=== PATIENT | male | born 1990 | race Caucasian/White ===

== ENCOUNTER 2019-11-09 19:28 | Emergency (ER) | payer OTHER, SELFPAY ==
[2019-11-09 19:43] VITALS: BP 135/67; PULSE 91; RESP 14; TEMP 37.4; O2SAT 99
--- NOTE | 2019-11-09 20:02 | PC.NURSE ---
Pt asking for something to calm him down claiming that no one has came and talked to him and he's starting to get upset. Provider aware
--- NOTE | 2019-11-09 20:08 | PC.NURSE ---
Pt walked out of department after stating that he didnt have time to be here and that he would just call 911 if he had an actual emergency. I asked the pt if he wanted to stay and talk to a nurse and he responded that it's going to take longer and i'd rather not stay. He proceeded to follow me back into the department and [employer] history teacher Ozzy talked to him
== END 2019-11-09 20:10 | disposition left against medical advice (07) ==
PROVIDERS: Emergency Provider Emergency Medicine; PCP Student in an Organized Health Care Education/Training Program
DX: R55 Syncope and collapse (principal); E16.2 Hypoglycemia, unspecified
CPT/HCPCS: 93005; 99281

== ENCOUNTER 2019-11-22 17:41 | Emergency (ER) | payer OTHER, MEDICAID, SELFPAY ==
[2019-11-22 17:49] VITALS: BP 145/87; PULSE 84; RESP 18; TEMP 36.9; O2SAT 97
--- NOTE | 2019-11-22 17:55 | PC.NURSE ---
Patient reports doing anywhere from 150-400 whip its a day. States he couldn't stop doing them today and had heart palpitations so called 911. I would like to speed up the process I have my dog alone at the [facility]
--- NOTE | 2019-11-22 17:58 | PC.NURSE ---
Pt reports doing approx 200 whip its today.
[2019-11-22 18:06] LABS: Add Manual Diff / Slide Review NO; Basophils Absolute Auto 0 /uL (0-100); Basophils Percent Auto 0.6 % (0-2); Eosinophils Absolute Auto 200 /uL (0-450); Eosinophils Percent Auto 2.4 % (2-4); Hematocrit 37.4 % (41-53); Hemoglobin 13.2 g/dL (13.5-17.5); Lymphocytes Absolute Auto 2600 /uL (1100-4500); Lymphocytes Percent Auto 34.4 % (25-40); Mean Corpuscular HGB Conc 35.3 % (30-36); Mean Corpuscular Hemoglobin 32.7 PG (26-34); Mean Corpuscular Volume 92.7 fL (80-100); Monocytes Absolute Auto 600 /uL (0-900); Monocytes Percent Auto 7.5 % (3-14); Neutrophils Absolute Auto 4200 /uL (1500-7000); Neutrophils Percent Auto 55.1 % (50-75); Platelet Count 222 X10^3/uL (150-400); Red Blood Cell Count 4.03 X10^6/uL (4.5-5.9); Red Cell Distribution Width 14.7 % (11.6-14.8); White Blood Cell Count 7.6 X10^3/uL (4.5-11.0)
--- NOTE | 2019-11-22 18:15 | ED_ITS ---
HPI - Overdose General Chief Complaint: Toxicology Problem Stated Complaint: Needs Rehab Time Seen by Provider: 11/22/19 17:47 Source: EMS Mode of arrival: EMS Related Data Allergies Allergy/AdvReac Type Severity Reaction Status Date / Time No Known Drug Allergies Allergy Verified 11/22/19 17:52 Patient History Social History Smoking Status: Current every day smoker Smoking Status: Current every day smoker alcohol intake frequency: other Substance Use Type: marijuana and other Exam Initial Vital Signs Initial Vital Signs: Vital Signs Temperature 98.4 F 11/22/19 17:49 Pulse Rate 84 11/22/19 17:49 Respiratory Rate 18 11/22/19 17:49 Blood Pressure 145/87 H 11/22/19 17:49 Pulse Oximetry 97 11/22/19 17:49 Course Orders Ordered: ED Orders 11/22/19 17:47 Consult to [facility] [place] - Patient Experience Coordinator Stat Urine Drug Screen, Rapid Stat 11/22/19 17:49 EKG-12 Lead Stat 11/22/19 17:58 Acetaminophen Stat Complete Blood Count AUTO DIFF Stat Comprehensive Metabolic Panel Stat Ethanol (ETOH) Stat Lipase Stat Salicylate Stat Thyroid Stimulating Hormone Stat Vital Signs Vital signs: Vital Signs - 8 hr 11/22/19 17:49 Temperature 98.4 F Pulse Rate 84 Respiratory Rate 18 Blood Pressure 145/87 H Pulse Oximetry 97 MDM - Overdose Lab Data Result diagrams: 11/22/19 17:58 11/22/19 17:58 Labs: Lab Results 11/22/19 Range/Units 17:58 WBC 7.6 (4.5-11.0) X10^3/uL RBC 4.03 L (4.5-5.9) X10^6/uL Hgb 13.2 L (13.5-17.5) g/dL Hct 37.4 L (41-53) % MCV 92.7 (80-100) fL MCH 32.7 (26-34) PG MCHC 35.3 (30-36) % RDW 14.7 (11.6-14.8) % Plt Count 222 (150-400) X10^3/uL Neut % (Auto) 55.1 (50-75) % Lymph % (Auto) 34.4 (25-40) % [place] % (Auto) 7.5 (3-14) % Eos % (Auto) 2.4 (2-4) % Baso % (Auto) 0.6 (0-2) % Neut # (Auto) 4200 (1441-3655) /uL Lymph # (Auto) 2600 (5065-5263) /uL [place] # (Auto) 600 (0-900) /uL Eos # (Auto) 200 (0-450) /uL Baso # (Auto) 0 (0-100) /uL
[2019-11-22 18:22] LABS: Acetaminophen < 10 ug/mL (10-30); Alanine Aminotransferase 27 IU/L (<50); Albumin 4.8 g/dL (3.5-5.0); Albumin Globulin Ratio 1.8 (1.0-2.8); Alkaline Phosphatase 61 U/L (38-126); Aspartate Aminotransferase 27 IU/L (17-59); BUN Creatinine Ratio 28.1 (6-22); Bilirubin Total 0.8 mg/dL (0.2-1.3); Blood Urea Nitrogen 18 mg/dL (9-20); Calcium 10.2 mg/dL (8.4-10.2); Carbon Dioxide 22 mmol/L (22-32); Chloride 111 mmol/L (98-107); Estimated Glomerular Filt Rate > 60.0 mL/min (>60); Ethanol (ETOH) < 10 mg/dL; Globulin 2.7 g/dL (1.7-4.1); Glucose 99 mg/dL (70-100); HEMOLYSIS < 15 (0-50); Lipase 58 U/L (23-300); Potassium 4.2 mmol/L (3.4-5.1); Salicylate < 1.0 mg/dL (<20); Sodium 142 mmol/L (137-145); Total Protein 7.5 g/dL (6.3-8.2)
[2019-11-22 19:24] LABS: Thyroid Stimulating Hormone 2.33 uIU/mL (0.47-4.68)
== END 2019-11-22 18:45 | disposition left against medical advice (07) ==
PROVIDERS: Emergency Medicine; Emergency Provider Emergency Medicine; PCP Student in an Organized Health Care Education/Training Program
DX: T59.91XA Toxic effect of unspecified gases, fumes and vapors, accidental (unintentional), initial encounter (principal); R07.9 Chest pain, unspecified
CPT/HCPCS: 36415; 80053; 80320; 80329; 83690; 84443; 85025; 93005; 99284; G0480

== ENCOUNTER 2020-09-25 21:38 | Emergency (ER) | payer OTHER, MEDICAID, SELFPAY ==
[2020-09-25 21:47] VITALS: BP 116/67; PULSE 88; RESP 17; TEMP 37; O2SAT 98; BMI 21.6
[2020-09-25 22:28] LABS: Add Manual Diff / Slide Review NO; Basophils Absolute Auto 100 /uL (0-100); Basophils Percent Auto 1.1 % (0-2); Eosinophils Absolute Auto 200 /uL (0-450); Eosinophils Percent Auto 2.1 % (2-4); Hematocrit 38.9 % (41-53); Hemoglobin 13.4 g/dL (13.5-17.5); Lymphocytes Absolute Auto 3400 /uL (1100-4500); Lymphocytes Percent Auto 40.2 % (25-40); Mean Corpuscular HGB Conc 34.3 % (30-36); Mean Corpuscular Hemoglobin 30.7 PG (26-34); Mean Corpuscular Volume 89.4 fL (80-100); Monocytes Absolute Auto 1000 /uL (0-900); Monocytes Percent Auto 11.8 % (3-14); Neutrophils Absolute Auto 3700 /uL (1500-7000); Neutrophils Percent Auto 44.8 % (50-75); Platelet Count 237 X10^3/uL (150-400); Red Blood Cell Count 4.35 X10^6/uL (4.5-5.9); Red Cell Distribution Width 13.8 % (11.6-14.8); White Blood Cell Count 8.3 X10^3/uL (4.5-11.0)
[2020-09-25 22:29] LABS: Acetaminophen < 10 ug/mL (10-30)
[2020-09-25 22:30] LABS: BUN Creatinine Ratio 8.8 (6-22); Blood Urea Nitrogen 5 mg/dL (9-20); Calcium 9.5 mg/dL (8.4-10.2); Carbon Dioxide 27 mmol/L (22-32); Chloride 105 mmol/L (98-107); Estimated Glomerular Filt Rate > 60.0 mL/min (>60); Ethanol (ETOH) < 10 mg/dL; Glucose 97 mg/dL (70-100); HEMOLYSIS < 15 (0-50); Potassium 3.9 mmol/L (3.4-5.1); Sodium 138 mmol/L (137-145)
--- NOTE | 2020-09-25 22:43 | PC.NURSE ---
I went in to get urine from the bedside and the patient stated that he wanted me to take his family ring from him because he was using it to hit his head. He stated that he gets mad and wants to bang his head on the wall because he wants to .
[2020-09-25 22:59] LABS: Bacteria Urine None Seen; RBC Urine None Seen (0-5/HPF); WBC Urine None Seen (0-5/HPF)
[2020-09-25 23:00] LABS: Appearance Urine UA CLEAR; Bilirubin Urine UA NEGATIVE (NEGATIVE); Color Urine UA YELLOW; Glucose Urine UA NEGATIVE (Negative); Ketones Urine UA NEGATIVE (NEGATIVE); Leukocyte Esterase Urine UA NEGATIVE (NEGATIVE); Nitrite Urine UA NEGATIVE (Negative); Occult Blood Urine UA NEGATIVE (Negative); Protein Urine UA NEGATIVE (Negative); Urobilinogen Urine UA 0.2 E.U./dL (0.2)
[2020-09-25 23:10] LABS: Ur Creatinine 20 (Normal)
[2020-09-25 23:11] LABS: UR Morphine/Opiate cutoff 300 Negative (Negative); Urine Amphetamines Negative (Negative); Urine Barbiturates Negative (Negative); Urine Benzodiazepines Negative (Negative); Urine Cocaine Negative (Negative); Urine MDMA Negative (Negative); Urine Methadone Negative (Negative); Urine Methamphetamines Negative (Negative); Urine Oxycodone Negative (Negative); Urine Phencyclidine Negative (Negative); Urine Tetrahydrocannabinol Positive (Negative); Urine Tricyclic Antidepressant Negative (Negative); Urine pH 8 (Normal)
[2020-09-25 23:17] LABS: Thyroid Stimulating Hormone 1.32 uIU/mL (0.47-4.68)
--- NOTE | 2020-09-25 23:17 | PC.NURSE ---
pt hitting head against wall. asked pt to stop and to place had onto bed, pt refuses states its my only relief. informed dr of pts concern.
--- NOTE | 2020-09-25 23:19 | ED.PSYCH ---
HPI - Psych <Charles Youngblood DO - Last Filed: 09/27/20 01:31> General Chief Complaint: Psychiatric Symptoms Stated Complaint: MENTAL STATUS SUICIDAL IDEATION OFF MEDICATIONS Time Seen by Provider: 09/25/20 22:31 Source: patient Mode of arrival: Ambulatory Limitations: no limitations History of Present Illness HPI Narrative: Patient is a 29-year-old male who is here voluntarily with what he states his suicidal ideation, not taking any medication, anxiety, thoughts of hurting himself. Patient states that approximately 1 week ago he was discharged after spending approximately 1 week and facility for an involuntary hold. He states that he had to be discharged because ?the court ran out of time ?he states that there was no follow-up scheduled for him. He has not been taking any of his medications. Patient states that he has autism and is hard for him to express what he is feeling. He wrote a note stating that he is severely autistic and has no family/social supports and has had a 3-5 months of ongoing ?crisis ?he states he has been in the ER 20 5 times so far this year. He is here seeking voluntary admission. Related Data Home Medications Medication Instructions Recorded Confirmed nabumetone 500 mg PO BID PRN 09/26/20 09/26/20 oxcarbazepine 150 mg PO BID 09/26/20 09/26/20 quetiapine 600 mg PO BEDTIME 09/26/20 09/26/20 Allergies Allergy/AdvReac Type Severity Reaction Status Date / Time No Known Drug Allergies Allergy Verified 11/22/19 17:52 Review of Systems <Charles Youngblood DO - Last Filed: 09/27/20 01:31> Constitutional Constitutional: Denies fever(s) and Denies headache(s) Eyes Eyes: Denies change in vision ENT Ears, Nose, Mouth, and Throat: Denies headache(s) and Denies sore throat Cardiovascular Cardiovascular: Denies chest pain and Denies dyspnea Respiratory Respiratory: Denies dyspnea Gastrointestinal Gastrointestinal: Denies abdominal pain, Denies change in bowel habits, Denies nausea and Denies vomiting Genitourinary Genitourinary: Denies dysuria Genitourinary: Denies dysuria Musculoskeletal Musculoskeletal: Denies arthralgias and Denies myalgias Integumentary/Breasts Skin/Breast: Denies rash Neurologic Neurologic: Reports behavioral changes, Reports confusion and Denies headache(s) Psychiatric Psychiatric: Reports anxiety, Reports behavioral changes, Reports change in appetite, Reports confusion, Reports depression, Reports difficulty concentrating, Reports hopelessness, Reports irritability, Reports anhedonia, Reports mood swings, Reports panic attacks, Reports paranoia, Denies visual hallucinations, Denies hallucinations, Denies homicidal ideation and Reports suicidal ideation Hematologic/Lymphatic On Anticoagulants: No Allergic/Immunologic Allergic/Immunologic: Denies urticaria Patient History <DO Alize Murrieta Last Filed: 09/27/20 01:31> Medical History Anxiety Borderline personality disorder Depression Insomnia Stress disorder, acute Social History Smoking Status: Current every day smoker Smoking Status: Current every day smoker alcohol intake frequency: other Substance Use Type: marijuana and other Exam <DO Alize Murrieta Last Filed: 09/27/20 01:31> Initial Vital Signs Initial Vital Signs: Vital Signs Temperature 98.6 F 09/25/20 21:47 Pulse Rate 88 09/25/20 21:47 Respiratory Rate 17 09/25/20 21:47 Blood Pressure 116/67 09/25/20 21:47 Pulse Oximetry 98 09/25/20 21:47 Const General: cooperative, comfortable and well developed Limitations: mental status not altered HENNY Head: normal to inspection and normocephalic Eyes General: appearance normal, both eyes and all related structures Resp Effort & Inspection: normal respiratory effort Cardio Rate: regular rate GI Inspection: non-distended Skin Lesions: no lesions Rashes: no rashes Neuro General: patient alert, patient awake and patient oriented x3 Cognition: normal cognition Speech: speech normal Gait: normal gait Extrem General: capillary refill normal Psych Appearance: well kempt Speech and Movement: agitated, pressured speech and restless Mood: anxious mood and irritable mood Affect: indifferent Attitude: cooperative Thought Process: normal Thought Content: suicidality <Fish Saini DO - Last Filed: 09/28/20 16:06> Initial Vital Signs Initial Vital Signs: Vital Signs Temperature 98.6 F 09/25/20 21:47 Pulse Rate 88 09/25/20 21:47 Respiratory Rate 17 09/25/20 21:47 Blood Pressure 116/67 09/25/20 21:47 Pulse Oximetry 98 09/25/20 21:47 <Marianne Whitley DO - Last Filed: 09/27/20 15:00> Initial Vital Signs Initial Vital Signs: Vital Signs Temperature 98.6 F 09/25/20 21:47 Pulse Rate 88 09/25/20 21:47 Respiratory Rate 17 09/25/20 21:47 Blood Pressure 116/67 09/25/20 21:47 Pulse Oximetry 98 09/25/20 21:47 Scores <Charles Youngblood DO - Last Filed: 09/27/20 01:31> GCS Martin coma scale eye opening: Spontaneous Martin coma scale verbal response: Orientated Tanisha coma scale motor response: Obey commands Tanisha coma scale total score: 15 Course <Charles Youngblood DO - Last Filed: 09/27/20 01:31> Orders Ordered: Discontinued Medications Lorazepam (Lorazepam 0.5 Mg Tablet) 1 mg PO NOW ONE Stop: 09/25/20 23:20 Last Admin: 09/25/20 23:35 Dose: 1 mg Documented by: DYLAN Lorazepam (Lorazepam 0.5 Mg Tablet) 1 mg PO NOW ONE Stop: 09/26/20 00:16 Last Admin: 09/26/20 00:51 Dose: 1 mg Documented by: DYLAN Lorazepam (Lorazepam 0.5 Mg Tablet) 1 mg PO NOW ONE Stop: 09/26/20 12:28 Last Admin: 09/26/20 12:46 Dose: 1 mg Documented by: ALEX Lorazepam (Lorazepam 0.5 Mg Tablet) 1 mg PO NOW ONE Stop: 09/26/20 19:33 Last Admin: 09/26/20 19:36 Dose: 1 mg Documented by: LAURA Lorazepam (Lorazepam 0.5 Mg Tablet) 1 mg PO NOW ONE Stop: 09/27/20 01:37 Last Admin: 09/27/20 01:43 Dose: 1 mg Documented by: BLAIR Lorazepam (Lorazepam 0.5 Mg Tablet) 1 mg PO NOW ONE Stop: 09/27/20 08:32 Last Admin: 09/27/20 08:34 Dose: 1 mg Documented by: BIRGIT Lorazepam (Lorazepam 0.5 Mg Tablet) 2 mg PO NOW ONE Stop: 09/27/20 12:06 Last Admin: 09/27/20 12:14 Dose: 2 mg Documented by: BIRGIT Nicotine (Nicotine 14 Patch) 14 mg TOP NOW ONE Stop: 09/25/20 22:52 Last Admin: 09/25/20 23:41 Dose: 14 mg Documented by: DYLAN Nicotine (Nicotine 21 Mg Patch) 21 mg TOP NOW ONE Stop: 09/27/20 08:42 Last Admin: 09/27/20 08:46 Dose: 21 mg Documented by: BIRGIT Vital Signs Vital signs: Vital Signs - 8 hr 09/27/20 07:55 09/27/20 11:32 09/27/20 14:46 Temperature 98.5 F Pulse Rate 85 77 75 Respiratory Rate 16 16 16 Blood Pressure 116/83 124/74 129/80 Pulse Oximetry 98 97 98 <Fish Saini, - Last Filed: 09/28/20 16:06> Course Course Narrative: Patient received in sign-out from Dr. Youngblood. Awaiting [employer] consultation. I have performed a brief review with the patient have no significant additions. Patient is significantly anxious and we will provide some Ativan. F[employer] ENGINEER has seen and evaluated the patient and is pursuing placement on a voluntary basis Orders Ordered: Discontinued Medications Lorazepam (Lorazepam 0.5 Mg Tablet) 1 mg PO NOW ONE Stop: 09/25/20 23:20 Last Admin: 09/25/20 23:35 Dose: 1 mg Documented by: DYLAN Lorazepam (Lorazepam 0.5 Mg Tablet) 1 mg PO NOW ONE Stop: 09/26/20 00:16 Last Admin: 09/26/20 00:51 Dose: 1 mg Documented by: DYLAN Lorazepam (Lorazepam 0.5 Mg Tablet) 1 mg PO NOW ONE Stop: 09/26/20 12:28 Last Admin: 09/26/20 12:46 Dose: 1 mg Documented by: ALEX Lorazepam (Lorazepam 0.5 Mg Tablet) 1 mg PO NOW ONE Stop: 09/26/20 19:33 Last Admin: 09/26/20 19:36 Dose: 1 mg Documented by: LAURA Lorazepam (Lorazepam 0.5 Mg Tablet) 1 mg PO NOW ONE Stop: 09/27/20 01:37 Last Admin: 09/27/20 01:43 Dose: 1 mg Documented by: APAFFIE Lorazepam (Lorazepam 0.5 Mg Tablet) 1 mg PO NOW ONE Stop: 09/27/20 08:32 Last Admin: 09/27/20 08:34 Dose: 1 mg Documented by: BIRGIT Lorazepam (Lorazepam 0.5 Mg Tablet) 2 mg PO NOW ONE Stop: 09/27/20 12:06 Last Admin: 09/27/20 12:14 Dose: 2 mg Documented by: BIRGIT Nicotine (Nicotine 14 Patch) 14 mg TOP NOW ONE Stop: 09/25/20 22:52 Last Admin: 09/25/20 23:41 Dose: 14 mg Documented by: DYLAN Nicotine (Nicotine 21 Mg Patch) 21 mg TOP NOW ONE Stop: 09/27/20 08:42 Last Admin: 09/27/20 08:46 Dose: 21 mg Documented by: BIRGIT Vital Signs Vital signs: Vital Signs - 8 hr 09/27/20 07:55 09/27/20 11:32 09/27/20 14:46 Temperature 98.5 F Pulse Rate 85 77 75 Respiratory Rate 16 16 16 Blood Pressure 116/83 124/74 129/80 Pulse Oximetry 98 97 98 <Marainne Whitley, - Last Filed: 09/27/20 15:00> Orders Ordered: Discontinued Medications Lorazepam (Lorazepam 0.5 Mg Tablet) 1 mg PO NOW ONE Stop: 09/25/20 23:20 Last Admin: 09/25/20 23:35 Dose: 1 mg Documented by: DYLAN Lorazepam (Lorazepam 0.5 Mg Tablet) 1 mg PO NOW ONE Stop: 09/26/20 00:16 Last Admin: 09/26/20 00:51 Dose: 1 mg Documented by: DYLAN Lorazepam (Lorazepam 0.5 Mg Tablet) 1 mg PO NOW ONE Stop: 09/26/20 12:28 Last Admin: 09/26/20 12:46 Dose: 1 mg Documented by: ALEX Lorazepam (Lorazepam 0.5 Mg Tablet) 1 mg PO NOW ONE Stop: 09/26/20 19:33 Last Admin: 09/26/20 19:36 Dose: 1 mg Documented by: LAURA Lorazepam (Lorazepam 0.5 Mg Tablet) 1 mg PO NOW ONE Stop: 09/27/20 01:37 Last Admin: 09/27/20 01:43 Dose: 1 mg Documented by: BLAIR Lorazepam (Lorazepam 0.5 Mg Tablet) 1 mg PO NOW ONE Stop: 09/27/20 08:32 Last Admin: 09/27/20 08:34 Dose: 1 mg Documented by: BIRGIT Lorazepam (Lorazepam 0.5 Mg Tablet) 2 mg PO NOW ONE Stop: 09/27/20 12:06 Last Admin: 09/27/20 12:14 Dose: 2 mg Documented by: BIRGIT Nicotine (Nicotine 14 Patch) 14 mg TOP NOW ONE Stop: 09/25/20 22:52 Last Admin: 09/25/20 23:41 Dose: 14 mg Documented by: DYLAN Nicotine (Nicotine 21 Mg Patch) 21 mg TOP NOW ONE Stop: 09/27/20 08:42 Last Admin: 09/27/20 08:46 Dose: 21 mg Documented by: BIRGIT Vital Signs Vital signs: Vital Signs - 8 hr 09/27/20 07:55 09/27/20 11:32 09/27/20 14:46 Temperature 98.5 F Pulse Rate 85 77 75 Respiratory Rate 16 16 16 Blood Pressure 116/83 124/74 129/80 Pulse Oximetry 98 97 98 MDM - Psych <Charles Youngblood DO - Last Filed: 09/27/20 01:31> Lab Data Attestation: I reviewed the patient's lab results. Result diagrams: 09/25/20 22:10 09/25/20 22:10 Labs: Lab Results 09/25/20 09/25/20 09/25/20 Range/Units 22:10 22:10 22:10 WBC 8.3 (4.5-11.0) X10^3/uL RBC 4.35 L (4.5-5.9) X10^6/uL Hgb 13.4 L (13.5-17.5) g/dL Hct 38.9 L (41-53) % MCV 89.4 (80-100) fL MCH 30.7 (26-34) PG MCHC 34.3 (30-36) % RDW 13.8 (11.6-14.8) % Plt Count 237 (150-400) X10^3/uL Neut % (Auto) 44.8 L (50-75) % Lymph % (Auto) 40.2 H (25-40) % [place] % (Auto) 11.8 (3-14) % Eos % (Auto) 2.1 (2-4) % Baso % (Auto) 1.1 (0-2) % Neut # (Auto) 3700 (0824-9396) /uL Lymph # (Auto) 3400 (2966-9791) /uL [place] # (Auto) 1000 H (0-900) /uL Eos # (Auto) 200 (0-450) /uL Baso # (Auto) 100 (0-100) /uL Sodium 138 (137-145) mmol/L Potassium 3.9 (3.4-5.1) mmol/L Chloride 105 (98-107) mmol/L Carbon Dioxide 27 (22-32) mmol/L BUN 5 L (9-20) mg/dL Creatinine 0.57 L (0.66-1.25) mg/dL Estimated GFR > 60.0 (>60) mL/min BUN/Creatinine Ratio 8.8 (6-22) Glucose 97 (70-100) mg/dL Calcium 9.5 (8.4-10.2) mg/dL TSH (0.47-4.68) uIU/mL Urine Color Urine Appearance Urine pH (4.5-8.0) Ur Specific [place] (1.000-1.035) Urine Protein (Negative) Urine Glucose (UA) (Negative) g/dL Urine Ketones (NEGATIVE) Urine Occult Blood (Negative) Urine Nitrate (Negative) Urine Bilirubin (NEGATIVE) Urine Urobilinogen (0.2) E.U./dL Ur Leukocyte Esterase (NEGATIVE) Urine RBC (0-5/HPF) Urine WBC (0-5/HPF) Urine Bacteria (None) Ur Culture Indicated? U Opiates 300ng/mL cut (Negative) Ur Oxycodone Screen (Negative) Urine Methadone Screen (Negative) Acetaminophen < 10 L (10-30) ug/mL Ur Barbiturates Screen (Negative) U Tricyclic Antidepress (Negative) Ur Phencyclidine Scrn (Negative) Ur Amphetamines Screen (Negative) U Methamphetamines Scrn (Negative) Ur MDMA Scrn (Ecstasy) (Negative) U Benzodiazepines Scrn (Negative) Urine Cocaine Screen (Negative) U Marijuana (THC) Screen (Negative) Ethyl Alcohol < 10 ( - 10) mg/dL SARS-CoV-2 (PCR) (Negative) 09/25/20 09/25/20 09/25/20 Range/Units 22:10 22:30 22:30 WBC (4.5-11.0) X10^3/uL RBC (4.5-5.9) X10^6/uL Hgb (13.5-17.5) g/dL Hct (41-53) % MCV (80-100) fL MCH (26-34) PG MCHC (30-36) % RDW (11.6-14.8) % Plt Count (150-400) X10^3/uL Neut % (Auto) (50-75) % Lymph % (Auto) (25-40) % [place] % (Auto) (3-14) % Eos % (Auto) (2-4) % Baso % (Auto) (0-2) % Neut # (Auto) (7206-1781) /uL Lymph # (Auto) (4474-1011) /uL [place] # (Auto) (0-900) /uL Eos # (Auto) (0-450) /uL Baso # (Auto) (0-100) /uL Sodium (137-145) mmol/L Potassium (3.4-5.1) mmol/L Chloride (98-107) mmol/L Carbon Dioxide (22-32) mmol/L BUN (9-20) mg/dL Creatinine (0.66-1.25) mg/dL Estimated GFR (>60) mL/min BUN/Creatinine Ratio (6-22) Glucose (70-100) mg/dL Calcium (8.4-10.2) mg/dL TSH 1.32 (0.47-4.68) uIU/mL Urine Color Yellow Urine Appearance Clear Urine pH 8.0 (4.5-8.0) Ur Specific [place] 1.010 (1.000-1.035) Urine Protein Negative (Negative) Urine Glucose (UA) Negative (Negative) g/dL Urine Ketones Negative (NEGATIVE) Urine Occult Blood Negative (Negative) Urine Nitrate Negative (Negative) Urine Bilirubin Negative (NEGATIVE) Urine Urobilinogen 0.2 (0.2) E.U./dL Ur Leukocyte Esterase Negative (NEGATIVE) Urine RBC None seen (0-5/HPF) Urine WBC None seen (0-5/HPF) Urine Bacteria None seen (None) Ur Culture Indicated? Cult not indicated U Opiates 300ng/mL cut Negative (Negative) Ur Oxycodone Screen Negative (Negative) Urine Methadone Screen Negative (Negative) Acetaminophen (10-30) ug/mL Ur Barbiturates Screen Negative (Negative) U Tricyclic Antidepress Negative (Negative) Ur Phencyclidine Scrn Negative (Negative) Ur Amphetamines Screen Negative (Negative) U Methamphetamines Scrn Negative (Negative) Ur MDMA Scrn (Ecstasy) Negative (Negative) U Benzodiazepines Scrn Negative (Negative) Urine Cocaine Screen Negative (Negative) U Marijuana (THC) Screen Positive H (Negative) Ethyl Alcohol ( - 10) mg/dL SARS-CoV-2 (PCR) (Negative) 09/25/20 Range/Units 22:56 WBC (4.5-11.0) X10^3/uL RBC (4.5-5.9) X10^6/uL Hgb (13.5-17.5) g/dL Hct (41-53) % MCV (80-100) fL MCH (26-34) PG MCHC (30-36) % RDW (11.6-14.8) % Plt Count (150-400) X10^3/uL Neut % (Auto) (50-75) % Lymph % (Auto) (25-40) % [place] % (Auto) (3-14) % Eos % (Auto) (2-4) % Baso % (Auto) (0-2) % Neut # (Auto) (9783-6840) /uL Lymph # (Auto) (0984-2442) /uL [place] # (Auto) (0-900) /uL Eos # (Auto) (0-450) /uL Baso # (Auto) (0-100) /uL Sodium (137-145) mmol/L Potassium (3.4-5.1) mmol/L Chloride (98-107) mmol/L Carbon Dioxide (22-32) mmol/L BUN (9-20) mg/dL Creatinine (0.66-1.25) mg/dL Estimated GFR (>60) mL/min BUN/Creatinine Ratio (6-22) Glucose (70-100) mg/dL Calcium (8.4-10.2) mg/dL TSH (0.47-4.68) uIU/mL Urine Color Urine Appearance Urine pH (4.5-8.0) Ur Specific [place] (1.000-1.035) Urine Protein (Negative) Urine Glucose (UA) (Negative) g/dL Urine Ketones (NEGATIVE) Urine Occult Blood (Negative) Urine Nitrate (Negative) Urine Bilirubin (NEGATIVE) Urine Urobilinogen (0.2) E.U./dL Ur Leukocyte Esterase (NEGATIVE) Urine RBC (0-5/HPF) Urine WBC (0-5/HPF) Urine Bacteria (None) Ur Culture Indicated? U Opiates 300ng/mL cut (Negative) Ur Oxycodone Screen (Negative) Urine Methadone Screen (Negative) Acetaminophen (10-30) ug/mL Ur Barbiturates Screen (Negative) U Tricyclic Antidepress (Negative) Ur Phencyclidine Scrn (Negative) Ur Amphetamines Screen (Negative) U Methamphetamines Scrn (Negative) Ur MDMA Scrn (Ecstasy) (Negative) U Benzodiazepines Scrn (Negative) Urine Cocaine Screen (Negative) U Marijuana (THC) Screen (Negative) Ethyl Alcohol ( - 10) mg/dL SARS-CoV-2 (PCR) Negative (Negative) MDM Narrative Medical decision making narrative: Patient here voluntarily. States that he has constant thoughts of wanting to hurt himself. He states he has cut himself in the past but not recently. He states he likes the hit his head against the wall because it causes him to have less stress. He also has thoughts of ?overdosing on medications ?he states that he has not had much to eat over the past couple days. He is here because he does not feel safe at home and feels like he is in a crisis mode and cannot take care of himself at home and would like to be admitted to the hospital. Patient is medically cleared. Attempted to contact multiple facilities for voluntary admission however they refused without social work evaluation. Patient has multiple times for Ambien in order for help him sleep however I informed him that he would not be receiving that here in the emergency department. He did receive 2 mg of Ativan by mouth and was able to sleep overnight. He remains medically cleared. Has been calm. Care turned over to day provider at change of shift to follow up with disposition. Social Work consult placed Dr Youngblood 09/27/20 @ 0130: Received turned over from day provider. Patient still remains medically cleared and stable. Has received Ativan throughout the day. Multiple places been contacted for voluntary placement. He has been accepted to [facility]. Transport has been arranged pick him up later this morning. Patient is stable for transport. <Fish DO Parveen - Last Filed: 09/28/20 16:06> Lab Data Labs: Lab Results 09/25/20 09/25/20 09/25/20 Range/Units 22:10 22:10 22:10 WBC 8.3 (4.5-11.0) X10^3/uL RBC 4.35 L (4.5-5.9) X10^6/uL Hgb 13.4 L (13.5-17.5) g/dL Hct 38.9 L (41-53) % MCV 89.4 (80-100) fL MCH 30.7 (26-34) PG MCHC 34.3 (30-36) % RDW 13.8 (11.6-14.8) % Plt Count 237 (150-400) X10^3/uL Neut % (Auto) 44.8 L (50-75) % Lymph % (Auto) 40.2 H (25-40) % [place] % (Auto) 11.8 (3-14) % Eos % (Auto) 2.1 (2-4) % Baso % (Auto) 1.1 (0-2) % Neut # (Auto) 3700 (0406-0211) /uL Lymph # (Auto) 3400 (3367-2142) /uL [place] # (Auto) 1000 H (0-900) /uL Eos # (Auto) 200 (0-450) /uL Baso # (Auto) 100 (0-100) /uL Sodium 138 (137-145) mmol/L Potassium 3.9 (3.4-5.1) mmol/L Chloride 105 (98-107) mmol/L Carbon Dioxide 27 (22-32) mmol/L BUN 5 L (9-20) mg/dL Creatinine 0.57 L (0.66-1.25) mg/dL Estimated GFR > 60.0 (>60) mL/min BUN/Creatinine Ratio 8.8 (6-22) Glucose 97 (70-100) mg/dL Calcium 9.5 (8.4-10.2) mg/dL TSH (0.47-4.68) uIU/mL Urine Color Urine Appearance Urine pH (4.5-8.0) Ur Specific [place] (1.000-1.035) Urine Protein (Negative) Urine Glucose (UA) (Negative) g/dL Urine Ketones (NEGATIVE) Urine Occult Blood (Negative) Urine Nitrate (Negative) Urine Bilirubin (NEGATIVE) Urine Urobilinogen (0.2) E.U./dL Ur Leukocyte Esterase (NEGATIVE) Urine RBC (0-5/HPF) Urine WBC (0-5/HPF) Urine Bacteria (None) Ur Culture Indicated? U Opiates 300ng/mL cut (Negative) Ur Oxycodone Screen (Negative) Urine Methadone Screen (Negative) Acetaminophen < 10 L (10-30) ug/mL Ur Barbiturates Screen (Negative) U Tricyclic Antidepress (Negative) Ur Phencyclidine Scrn (Negative) Ur Amphetamines Screen (Negative) U Methamphetamines Scrn (Negative) Ur MDMA Scrn (Ecstasy) (Negative) U Benzodiazepines Scrn (Negative) Urine Cocaine Screen (Negative) U Marijuana (THC) Screen (Negative) Ethyl Alcohol < 10 ( - 10) mg/dL SARS-CoV-2 (PCR) (Negative) 09/25/20 09/25/20 09/25/20 Range/Units 22:10 22:30 22:30 WBC (4.5-11.0) X10^3/uL RBC (4.5-5.9) X10^6/uL Hgb (13.5-17.5) g/dL Hct (41-53) % MCV (80-100) fL MCH (26-34) PG MCHC (30-36) % RDW (11.6-14.8) % Plt Count (150-400) X10^3/uL Neut % (Auto) (50-75) % Lymph % (Auto) (25-40) % [place] % (Auto) (3-14) % Eos % (Auto) (2-4) % Baso % (Auto) (0-2) % Neut # (Auto) (7707-3299) /uL Lymph # (Auto) (1817-5249) /uL [place] # (Auto) (0-900) /uL Eos # (Auto) (0-450) /uL Baso # (Auto) (0-100) /uL Sodium (137-145) mmol/L Potassium (3.4-5.1) mmol/L Chloride (98-107) mmol/L Carbon Dioxide (22-32) mmol/L BUN (9-20) mg/dL Creatinine (0.66-1.25) mg/dL Estimated GFR (>60) mL/min BUN/Creatinine Ratio (6-22) Glucose (70-100) mg/dL Calcium (8.4-10.2) mg/dL TSH 1.32 (0.47-4.68) uIU/mL Urine Color Yellow Urine Appearance Clear Urine pH 8.0 (4.5-8.0) Ur Specific [place] 1.010 (1.000-1.035) Urine Protein Negative (Negative) Urine Glucose (UA) Negative (Negative) g/dL Urine Ketones Negative (NEGATIVE) Urine Occult Blood Negative (Negative) Urine Nitrate Negative (Negative) Urine Bilirubin Negative (NEGATIVE) Urine Urobilinogen 0.2 (0.2) E.U./dL Ur Leukocyte Esterase Negative (NEGATIVE) Urine RBC None seen (0-5/HPF) Urine WBC None seen (0-5/HPF) Urine Bacteria None seen (None) Ur Culture Indicated? Cult not indicated U Opiates 300ng/mL cut Negative (Negative) Ur Oxycodone Screen Negative (Negative) Urine Methadone Screen Negative (Negative) Acetaminophen (10-30) ug/mL Ur Barbiturates Screen Negative (Negative) U Tricyclic Antidepress Negative (Negative) Ur Phencyclidine Scrn Negative (Negative) Ur Amphetamines Screen Negative (Negative) U Methamphetamines Scrn Negative (Negative) Ur MDMA Scrn (Ecstasy) Negative (Negative) U Benzodiazepines Scrn Negative (Negative) Urine Cocaine Screen Negative (Negative) U Marijuana (THC) Screen Positive H (Negative) Ethyl Alcohol ( - 10) mg/dL SARS-CoV-2 (PCR) (Negative) 09/25/20 Range/Units 22:56 WBC (4.5-11.0) X10^3/uL RBC (4.5-5.9) X10^6/uL Hgb (13.5-17.5) g/dL Hct (41-53) % MCV (80-100) fL MCH (26-34) PG MCHC (30-36) % RDW (11.6-14.8) % Plt Count (150-400) X10^3/uL Neut % (Auto) (50-75) % Lymph % (Auto) (25-40) % [place] % (Auto) (3-14) % Eos % (Auto) (2-4) % Baso % (Auto) (0-2) % Neut # (Auto) (2552-3332) /uL Lymph # (Auto) (6787-4509) /uL [place] # (Auto) (0-900) /uL Eos # (Auto) (0-450) /uL Baso # (Auto) (0-100) /uL Sodium (137-145) mmol/L Potassium (3.4-5.1) mmol/L Chloride (98-107) mmol/L Carbon Dioxide (22-32) mmol/L BUN (9-20) mg/dL Creatinine (0.66-1.25) mg/dL Estimated GFR (>60) mL/min BUN/Creatinine Ratio (6-22) Glucose (70-100) mg/dL Calcium (8.4-10.2) mg/dL TSH (0.47-4.68) uIU/mL Urine Color Urine Appearance Urine pH (4.5-8.0) Ur Specific [place] (1.000-1.035) Urine Protein (Negative) Urine Glucose (UA) (Negative) g/dL Urine Ketones (NEGATIVE) Urine Occult Blood (Negative) Urine Nitrate (Negative) Urine Bilirubin (NEGATIVE) Urine Urobilinogen (0.2) E.U./dL Ur Leukocyte Esterase (NEGATIVE) Urine RBC (0-5/HPF) Urine WBC (0-5/HPF) Urine Bacteria (None) Ur Culture Indicated? U Opiates 300ng/mL cut (Negative) Ur Oxycodone Screen (Negative) Urine Methadone Screen (Negative) Acetaminophen (10-30) ug/mL Ur Barbiturates Screen (Negative) U Tricyclic Antidepress (Negative) Ur Phencyclidine Scrn (Negative) Ur Amphetamines Screen (Negative) U Methamphetamines Scrn (Negative) Ur MDMA Scrn (Ecstasy) (Negative) U Benzodiazepines Scrn (Negative) Urine Cocaine Screen (Negative) U Marijuana (THC) Screen (Negative) Ethyl Alcohol ( - 10) mg/dL SARS-CoV-2 (PCR) Negative (Negative) <Marianne Gutierrez, DO - Last Filed: 09/27/20 15:00> Lab Data Labs: Lab Results 09/25/20 09/25/20 09/25/20 Range/Units 22:10 22:10 22:10 WBC 8.3 (4.5-11.0) X10^3/uL RBC 4.35 L (4.5-5.9) X10^6/uL Hgb 13.4 L (13.5-17.5) g/dL Hct 38.9 L (41-53) % MCV 89.4 (80-100) fL MCH 30.7 (26-34) PG MCHC 34.3 (30-36) % RDW 13.8 (11.6-14.8) % Plt Count 237 (150-400) X10^3/uL Neut % (Auto) 44.8 L (50-75) % Lymph % (Auto) 40.2 H (25-40) % [place] % (Auto) 11.8 (3-14) % Eos % (Auto) 2.1 (2-4) % Baso % (Auto) 1.1 (0-2) % Neut # (Auto) 3700 (7677-5441) /uL Lymph # (Auto) 3400 (7659-1903) /uL [place] # (Auto) 1000 H (0-900) /uL Eos # (Auto) 200 (0-450) /uL Baso # (Auto) 100 (0-100) /uL Sodium 138 (137-145) mmol/L Potassium 3.9 (3.4-5.1) mmol/L Chloride 105 (98-107) mmol/L Carbon Dioxide 27 (22-32) mmol/L BUN 5 L (9-20) mg/dL Creatinine 0.57 L (0.66-1.25) mg/dL Estimated GFR > 60.0 (>60) mL/min BUN/Creatinine Ratio 8.8 (6-22) Glucose 97 (70-100) mg/dL Calcium 9.5 (8.4-10.2) mg/dL TSH (0.47-4.68) uIU/mL Urine Color Urine Appearance Urine pH (4.5-8.0) Ur Specific [place] (1.000-1.035) Urine Protein (Negative) Urine Glucose (UA) (Negative) g/dL Urine Ketones (NEGATIVE) Urine Occult Blood (Negative) Urine Nitrate (Negative) Urine Bilirubin (NEGATIVE) Urine Urobilinogen (0.2) E.U./dL Ur Leukocyte Esterase (NEGATIVE) Urine RBC (0-5/HPF) Urine WBC (0-5/HPF) Urine Bacteria (None) Ur Culture Indicated? U Opiates 300ng/mL cut (Negative) Ur Oxycodone Screen (Negative) Urine Methadone Screen (Negative) Acetaminophen < 10 L (10-30) ug/mL Ur Barbiturates Screen (Negative) U Tricyclic Antidepress (Negative) Ur Phencyclidine Scrn (Negative) Ur Amphetamines Screen (Negative) U Methamphetamines Scrn (Negative) Ur MDMA Scrn (Ecstasy) (Negative) U Benzodiazepines Scrn (Negative) Urine Cocaine Screen (Negative) U Marijuana (THC) Screen (Negative) Ethyl Alcohol < 10 ( - 10) mg/dL SARS-CoV-2 (PCR) (Negative) 09/25/20 09/25/20 09/25/20 Range/Units 22:10 22:30 22:30 WBC (4.5-11.0) X10^3/uL RBC (4.5-5.9) X10^6/uL Hgb (13.5-17.5) g/dL Hct (41-53) % MCV (80-100) fL MCH (26-34) PG MCHC (30-36) % RDW (11.6-14.8) % Plt Count (150-400) X10^3/uL Neut % (Auto) (50-75) % Lymph % (Auto) (25-40) % [place] % (Auto) (3-14) % Eos % (Auto) (2-4) % Baso % (Auto) (0-2) % Neut # (Auto) (7175-5662) /uL Lymph # (Auto) (0325-7609) /uL [place] # (Auto) (0-900) /uL Eos # (Auto) (0-450) /uL Baso # (Auto) (0-100) /uL Sodium (137-145) mmol/L Potassium (3.4-5.1) mmol/L Chloride (98-107) mmol/L Carbon Dioxide (22-32) mmol/L BUN (9-20) mg/dL Creatinine (0.66-1.25) mg/dL Estimated GFR (>60) mL/min BUN/Creatinine Ratio (6-22) Glucose (70-100) mg/dL Calcium (8.4-10.2) mg/dL TSH 1.32 (0.47-4.68) uIU/mL Urine Color Yellow Urine Appearance Clear Urine pH 8.0 (4.5-8.0) Ur Specific [place] 1.010 (1.000-1.035) Urine Protein Negative (Negative) Urine Glucose (UA) Negative (Negative) g/dL Urine Ketones Negative (NEGATIVE) Urine Occult Blood Negative (Negative) Urine Nitrate Negative (Negative) Urine Bilirubin Negative (NEGATIVE) Urine Urobilinogen 0.2 (0.2) E.U./dL Ur Leukocyte Esterase Negative (NEGATIVE) Urine RBC None seen (0-5/HPF) Urine WBC None seen (0-5/HPF) Urine Bacteria None seen (None) Ur Culture Indicated? Cult not indicated U Opiates 300ng/mL cut Negative (Negative) Ur Oxycodone Screen Negative (Negative) Urine Methadone Screen Negative (Negative) Acetaminophen (10-30) ug/mL Ur Barbiturates Screen Negative (Negative) U Tricyclic Antidepress Negative (Negative) Ur Phencyclidine Scrn Negative (Negative) Ur Amphetamines Screen Negative (Negative) U Methamphetamines Scrn Negative (Negative) Ur MDMA Scrn (Ecstasy) Negative (Negative) U Benzodiazepines Scrn Negative (Negative) Urine Cocaine Screen Negative (Negative) U Marijuana (THC) Screen Positive H (Negative) Ethyl Alcohol ( - 10) mg/dL SARS-CoV-2 (PCR) (Negative) 09/25/20 Range/Units 22:56 WBC (4.5-11.0) X10^3/uL RBC (4.5-5.9) X10^6/uL Hgb (13.5-17.5) g/dL Hct (41-53) % MCV (80-100) fL MCH (26-34) PG MCHC (30-36) % RDW (11.6-14.8) % Plt Count (150-400) X10^3/uL Neut % (Auto) (50-75) % Lymph % (Auto) (25-40) % [place] % (Auto) (3-14) % Eos % (Auto) (2-4) % Baso % (Auto) (0-2) % Neut # (Auto) (3129-2882) /uL Lymph # (Auto) (7285-2383) /uL [place] # (Auto) (0-900) /uL Eos # (Auto) (0-450) /uL Baso # (Auto) (0-100) /uL Sodium (137-145) mmol/L Potassium (3.4-5.1) mmol/L Chloride (98-107) mmol/L Carbon Dioxide (22-32) mmol/L BUN (9-20) mg/dL Creatinine (0.66-1.25) mg/dL Estimated GFR (>60) mL/min BUN/Creatinine Ratio (6-22) Glucose (70-100) mg/dL Calcium (8.4-10.2) mg/dL TSH (0.47-4.68) uIU/mL Urine Color Urine Appearance Urine pH (4.5-8.0) Ur Specific [place] (1.000-1.035) Urine Protein (Negative) Urine Glucose (UA) (Negative) g/dL Urine Ketones (NEGATIVE) Urine Occult Blood (Negative) Urine Nitrate (Negative) Urine Bilirubin (NEGATIVE) Urine Urobilinogen (0.2) E.U./dL Ur Leukocyte Esterase (NEGATIVE) Urine RBC (0-5/HPF) Urine WBC (0-5/HPF) Urine Bacteria (None) Ur Culture Indicated? U Opiates 300ng/mL cut (Negative) Ur Oxycodone Screen (Negative) Urine Methadone Screen (Negative) Acetaminophen (10-30) ug/mL Ur Barbiturates Screen (Negative) U Tricyclic Antidepress (Negative) Ur Phencyclidine Scrn (Negative) Ur Amphetamines Screen (Negative) U Methamphetamines Scrn (Negative) Ur MDMA Scrn (Ecstasy) (Negative) U Benzodiazepines Scrn (Negative) Urine Cocaine Screen (Negative) U Marijuana (THC) Screen (Negative) Ethyl Alcohol ( - 10) mg/dL SARS-CoV-2 (PCR) Negative (Negative) MDM Narrative Medical decision making narrative: Patient signed out to me by Dr. Youngblood. Transport is here at 8:45 a.m. to take patient to [facility]. However patient is adamantly refusing to go to [facility] saying that he would than go there. He is voluntary as long as it is not to [facility]. At this point I have sent the ambulance away and waiting for social work to come and at noon. 10:45 a.m. patient is leave the emergency department. He goes to the waiting room states that he is being held against his will and nobody can say why. Patient is still suicidal but adamant about not going to [facility]. He says if he has made involuntary did a chance that he would go to [facility] and he absolutely does not want that. Discussion with social service technician who recommends calling DCR. DCR evaluated patient. At this time not detainable. They have made a plan with his outpatient psychiatrist. At this time he is able to contract for safety and agrees with discharge. Discharge Plan Departure Patient Disposition: Home Clinical Impression: Suicidal ideation, Anxiety Instructions: DI for Suicidal Ideation-Adult Activity Restrictions/Additional Instructions: *You have been diagnosed with suicidal ideation *What to do: Please call and follow-up with [facility]. If you are feeling suicidal or having suicidal thoughts: Call: Suicide Hotline: Visit: www.[employer] Text: 798598 *Continue to take medications as directed *Follow up with your primary care provider in 2-3 days *Return to ER if you should have increasing thoughts of suicide, anxiety, depression or any new, worsening or concerning symptoms Prescriptions: No Action oxcarbazepine 150 mg tablet 150 mg PO BID RF: 0 quetiapine 300 mg tablet 600 mg PO BEDTIME RF: 0 nabumetone 500 mg tablet 500 mg PO BID PRN (Reason: ANXIETY / IRRITIABILITY) RF: 0 Referrals: Palu Moody MD [Primary Care Provider] -
[2020-09-25] MEDS: LORazepam 0.5 MG TABLET 1 MG PO (23:35)
[2020-09-25] MEDS: NICOTINE 14 PATCH 14 MG TOP (23:41)
--- NOTE | 2020-09-26 00:05 | PC.NURSE ---
[facility] [place] said might have voluntary male beds - [facility] - did not have any beds - [facility]- want an social work consult to accept - [facility]- Has beds but does not have a clinician to accept until 0700 tomorrow 09/26/20. We plan on sending paperwork facility at about 0600 for placement
[2020-09-26 00:25] LABS: COVID19 -Nasal RAPID Negative (Negative)
[2020-09-26 00:27] LABS: Culture Indicated Urine Cult Not Indicated
[2020-09-26] MEDS: LORazepam 0.5 MG TABLET 1 MG PO ×3 (00:51→19:36)
--- NOTE | 2020-09-26 01:21 | PC.NURSE ---
Pt wrapped sheet around neck loosely. Jessica BOND removed drawsheet from pt's neck.
--- NOTE | 2020-09-26 08:17 | PC.NURSE ---
patient laying on stretcher with eyes closed, respirations observed, door open, PHARMACIST PER DIEM monitoring.
--- NOTE | 2020-09-26 13:34 | PC.NURSE ---
Patient remembered that his dog was in the vehicle without the windows down. With permission from the patient, I entered his vehicle and cared for his dog. Animal control has been contacted and they should be coming to turkey picker the patient's dog soon.
[2020-09-26 13:38] VITALS: BP 115/90; PULSE 70; O2SAT 100
--- NOTE | 2020-09-26 14:13 | CM.SWNOTE ---
COMP FIELD CASE MANAGER Assessment COMP FIELD CASE MANAGER - Postal Delivery Officer Assessment COMP FIELD CASE MANAGER/Postal Delivery Officer Assessment Time Spent with Patient Start date 09/26/20 Visit Start Time 13:15 End date 09/26/20 Visit End Time 13:35 Total time Care Management spent on 20 patient visit-in minutes Mental Health Screening Include Onset, Duration, Intensity Presenting Problem Patient presents to ED with reports of SI with ways and means. Patient reports he would stab himself with something sharp if he had it right now. Patient reports he has been in a MH crisis for the last 4 months. Patient endorses difficulty with sleep, lonliness, anxiety , and difficulty with appetite Precipitating Event(s) Patient was released from [facility] roughly two weeks prior. Patient Strengths Patient identifies some hope for future. Current Behavioral Health Provider(s) Dee Dee Black- [facility] Include Facility, Provider, Ph. # Patient reports he is supposed to meet with counselor weekly but he has been missing appointments. Psych. Hx Mental Health and Chemical Patient reports dx of major Dependency depressive disorder, anxiety and states he has 10 diagnoses . Patient reports hx of SI and SA. Patient reports ETOH or other substance use, patient endorses use of nicotene products. Family Hx of Behavioral Abuse none reported. Psychiatric Hospitalizations (date(s)/ Patient reports he was location) involuntarily admitted to [facility] about two weeks ago. Psychosocial information & Support Patient is 29 yo male resides [place] in [place] on [facility] [address]. Patient reports he lives alone with no report of family and friends. School/Work No school/work reported Legal Concerns Legal Matters - Outstanding Issues None reported. Mental Status Orientation (Person/Place/Time) A/Ox4 Stated Mood I want to kill myself Affect (Congruent with Mood?) dysphoric, anxious, full range and congruent with mood. Thought Content - Specify/Describe Patient denies obsessions, Obsessions, Delusions, Hallucinations delusions or hallucinations. However, patient expresses worry that people are out to get him due to witness testimony given, hazing and other federal offenses. Thought Processes (Omfwhch-Ocxmyzwr-Czgn Circumstantial Dvlibruj-Dkcxkdkg-Dlbdnyhgbs- Qmkxxsxbyqznsx-Oygikio-Edkouycqnlip- Thought Blocking) Speech (Ymhpoi-Ohya-Lfuhqjt-Rapid-Soft- Rapid Loud-Pressured) Motor (Czxast-Wtldhivae-Lqjx-Other) Excessive, patient presents in position and shaking. Insight (Uqir-Cqcx-Hdjp/Limited) Fair/Limited Judgement (Sckp-Zkhr-Tluu/Limited) Poor/Limited Impulse Control (Adequate-Impaired) Impaired, patient reports that if he had access to something sharp I would stab myself right now. Memory (Wkmwqnaoz-Seuxho-Kcoecg, Intact for assessment, not Impaired-Intact) formally assessed. Concentration (Intact-Impaired) Intact for assessment. Attention (Intact-Impaired) Intact for assessment. Behavior (Appropriate-Inappropriate) Appropriate. Risk Assessment Suicidal Ideation (Plan) Yes Homicidal Ideation (Plan) No Comment Patient reports SI and states that he would use anything sharp to stab himself or access anything to kill himself. Patient states people with MDD need to be ready to kill themselves at a moments notice. Patient reports he has previously engaged in reckless behaviors with reported apathy towards survival. Patient provides example of taking an entire bottle of pills. Patient denies HI. Intervention Intervention biofuels engineering manager meet bedside with patient. Patient reports MH crisis for the last 4 months. Patient reports current suicidality in the ED. Patient reports no support network and is open to voluntary inpatient treatment . It is the opinion of this COMP FIELD CASE MANAGER that this patient is currently a danger to himself and in need of inpatient psychiatric hospitalization at this time. Patient does volunteer wanting the help and appears appropriate for voluntary placement. COMP FIELD CASE MANAGER reviews the about with ARIEL Liu and ED provider Dr. Saini, who indicates agreement with plan. Plan RA Plan COMP FIELD CASE MANAGER to seek voluntary psychiatric bed for patient. ABDIRASHID Ruiz
--- NOTE | 2020-09-26 17:54 | CM.SWNOTE ---
FITTER TACKER Note FITTER TACKER calls [facility] and faxes clinicals for review. FITTER TACKER calls [facility], both hospitals report they have no inpatient voluntary beds. FITTER TACKER leaves with [facility]. FITTER TACKER calls [facility] and faxes clinicals for review. ABDIRASHID Ruiz
[2020-09-27] MEDS: LORazepam 0.5 MG TABLET 1 MG PO ×2 (01:43→08:34)
[2020-09-27 07:55] VITALS: BP 116/83; PULSE 85; RESP 16; TEMP 36.9; O2SAT 98
[2020-09-27] MEDS: NICOTINE 21 MG PATCH TOP (08:46)
--- NOTE | 2020-09-27 08:54 | PC.NURSE ---
pt refused to go to [facility]. States it's the worse place in [facility]. Dr. Whitley at bedside.
--- NOTE | 2020-09-27 10:50 | PC.NURSE ---
pt walked out, stating he wanted the police called, states if he gets in his car, [place] and people will leave him alone. Dr. gallegos aware. police called.
[2020-09-27 11:32] VITALS: BP 124/74; PULSE 77; RESP 16; O2SAT 97
[2020-09-27] MEDS: LORazepam 0.5 MG TABLET 2 MG PO (12:14)
--- NOTE | 2020-09-27 13:56 | PC.NURSE ---
DCR speaking with patient via Zoom.
--- NOTE | 2020-09-27 14:03 | PC.NURSE ---
Talking with DCR via ER pad.
[2020-09-27 14:46] VITALS: BP 129/80; PULSE 75; RESP 16; O2SAT 98
== END 2020-09-27 14:47 | disposition home or self-care (01) ==
PROVIDERS: Emergency Medicine; Emergency Provider Emergency Medicine; PCP Student in an Organized Health Care Education/Training Program
DX: R45.851 Suicidal ideations (principal); F41.9 Anxiety disorder, unspecified
CPT/HCPCS: 36415; 80048; 80305; 80320; 80329; 81001; 84443; 85025; 87635; 99284; C9803; G0480

== ENCOUNTER 2020-09-30 19:42 | Emergency (ER) | payer OTHER, MEDICAID, SELFPAY ==
--- NOTE | 2020-09-30 19:49 | ED_ITS ---
HPI - Psych <Fish Saini, DO - Last Filed: 10/03/20 02:40> General Chief Complaint: Psychiatric Symptoms Stated Complaint: depression,mental health crisis,not safe Time Seen by Provider: 09/30/20 19:49 Source: patient Mode of arrival: Ambulatory Limitations: no limitations History of Present Illness HPI Narrative: 29-year-old male with known mental health disease returns for the 2nd time this week and a chief complaint of ongoing suicidal ideation with a plan. While here earlier in the week under similar circumstances he was evaluated by [employer] [employer] and they had arranged for a voluntary bed at [facility]. At the last 2nd he apparently refused that transport and went home with a instruc tion to contact the crisis Center, and follow-up with his mental health team. Patient is alert and oriented, denies any trauma or use of any illicit drugs. He does have ongoing suicidal ideation but is unwilling to discuss with his plan would be. He denies any visual or auditory hallucinations. He does state that he is also concerned about the potential blood clot in his leg. He received the [employer] vaccination last week and now has occasional throbbing in his left thigh. He denies any redness, warmth or persistent tenderness. He has no chest pain, shortness of breath or hemoptysis. He denies any headache, blurred vision or neck pain. He does not feel safe at home and wishes to see our social workers again for possible hospitalization as he became immediately suicidal again upon arrival home MD complaint: suicidal ideation and feels depressed Onset (ago): hour(s) Duration: constant History of same: Yes Relieving factors: none Exacerbating factors: none Associated psychiatric symptoms: depression and suicidal ideation Associated symptoms: denies other symptoms Treatments prior to arrival: none If self harm: admits thoughts of self harm and has plan Related Data Home Medications Medication Instructions Recorded Confirmed nabumetone 500 mg PO BID PRN 09/26/20 09/26/20 oxcarbazepine 150 mg PO BID 09/26/20 09/26/20 quetiapine 600 mg PO BEDTIME 09/26/20 09/30/20 Lexapro 09/30/20 escitalopram oxalate [Lexapro] 10 mg PO DAILY 09/30/20 09/30/20 hydroxyzine HCl 100 mg PO TID PRN 04/17/21 04/17/21 lorazepam [Ativan] See Rx Instructions .ROUTE 09/30/20 09/30/20 .COMPLEX PRN prazosin 09/30/20 Allergies Allergy/AdvReac Type Severity Reaction Status Date / Time No Known Drug Allergies Allergy Verified 10/02/20 14:30 Review of Systems <Fish Saini DO - Last Filed: 10/03/20 02:40> Constitutional Constitutional: Denies chills, Denies fatigue, Denies fever(s), Denies frequent falls, Denies lethargy and Denies weakness Eyes Eyes: Denies change in vision, Denies eye discharge, Denies irritation and Denies loss of vision ENT Ears, Nose, Mouth, and Throat: Denies change in voice, Denies dizziness, Denies neck pain, Denies sore throat and Denies throat swelling Cardiovascular Cardiovascular: Denies chest pain, Denies irregular heart rhythm, Denies lightheadedness, Denies palpitations, Denies dyspnea, Denies dyspnea on exertion and Denies orthopnea Respiratory Respiratory: Denies cough, Denies dyspnea, Denies dyspnea on exertion and Denies wheezing Gastrointestinal Gastrointestinal: Denies abdominal pain, Denies change in bowel habits, Denies diarrhea, Denies nausea and Denies vomiting Musculoskeletal Musculoskeletal: Denies neck pain and Denies numbness Integumentary/Breasts Skin/Breast: Denies pruritus, Denies erythema, Denies rash and Denies wounds Neurologic Neurologic: Denies behavioral changes, Denies confusion, Denies dizziness, Denies frequent falls, Denies loss of vision, Denies numbness and Denies weakness Psychiatric Psychiatric: Denies anxiety, Denies behavioral changes, Denies confusion, Reports depression, Denies homicidal ideation and Reports suicidal ideation Endocrine Endocrine: Denies fatigue, Denies flushing and Denies palpitations Hematologic/Lymphatic Hematologic/Lymphatic: Denies easy bruising Allergic/Immunologic Allergic/Immunologic: Denies urticaria, Denies throat swelling and Denies wheezi ng Patient History <Fish Saini DO - Last Filed: 10/03/20 02:40> Medical History Anxiety Borderline personality disorder Depression Insomnia Stress disorder, acute Social History Smoking Status: Current every day smoker Smoking Status: Current every day smoker alcohol intake frequency: other Substance Use Type: marijuana and other Exam <Fish Saini DO - Last Filed: 10/03/20 02:40> Narrative Exam Narrative: GENERAL: [29] year old patient appears stated age. Well- nourished, well-developed patient, in mild distress. Anxious, very concerned a bout his safety HEAD: Atraumatic. Normocephalic. EYES: Pupils equal round and reactive. Extraocular motions intact. No scleral icterus. No injection or drainage. ENT: Nose without bleeding, purulent drainage. Throat without erythema, tonsillar hypertrophy or exudate. Airway patent. NECK: Trachea midline. Non tender CARDIOVASCULAR: Regular rate and rhythm without murmurs, gallops, or rubs. RESPIRATORY: Clear to auscultation. Breath sounds equal bilaterally. No wheezes, rales, or rhonchi. GASTROINTESTINAL: Abdomen soft, non-tender, nondistended. EXTREMITIES: No edema or joint tenderness. BACK: Nontender without deformity or crepitance. No flank tenderness. NEURO: AOx3. SKIN: No rash or erythema of visible areas Initial Vital Signs Initial Vital Signs: Vital Signs Temperature 98.3 F 09/30/20 19:50 Pulse Rate 96 H 09/30/20 19:50 Respiratory Rate 18 09/30/20 19:50 Blood Pressure 145/76 H 09/30/20 19:50 Pulse Oximetry 98 09/30/20 19:50 <Tiffanie Collazo DO - Last Filed: 10/01/20 18:14> Initial Vital Signs Initial Vital Signs: Vital Signs Temperature 98.3 F 09/30/20 19:50 Pulse Rate 96 H 09/30/20 19:50 Respiratory Rate 18 09/30/20 19:50 Blood Pressure 145/76 H 09/30/20 19:50 Pulse Oximetry 98 09/30/20 19:50 <Linnette Wynn MD - Last Filed: 10/02/20 14:45> Initial Vital Signs Initial Vital Signs: Vital Signs Temperature 98.3 F 09/30/20 19:50 Pulse Rate 96 H 09/30/20 19:50 Respiratory Rate 18 09/30/20 19:50 Blood Pressure 145/76 H 09/30/20 19:50 Pulse Oximetry 98 09/30/20 19:50 Course <Fish [place], DO - Last Filed: 10/03/20 02:40> Course Course Narrative: Patient has complaint about mild leg pain and concerned about clot is considered, however D-dimer is less than 200. Furthermore, his exam demonstrates no swelling, or redness or warmth. Orders Ordered: Discontinued Medications Escitalopram Oxalate (Escitalopram 10 Mg Tablet) 10 mg PO NOW ONE Stop: 10/01/20 10:41 Last Admin: 10/01/20 10:48 Dose: 10 mg Documented by: ABILIO Escitalopram Oxalate (Escitalopram 10 Mg Tablet) 10 mg PO NOW ONE Stop: 10/02/20 06:36 Last Admin: 10/02/20 06:39 Dose: 10 mg Documented by: PREMA Lorazepam (Lorazepam 0.5 Mg Tablet) 1 mg PO NOW ONE Stop: 09/30/20 21:36 Last Admin: 09/30/20 21:40 Dose: 1 mg Documented by: FAUSTINO Lorazepam (Lorazepam 0.5 Mg Tablet) 1 mg PO NOW ONE Stop: 10/01/20 10:41 Last Admin: 10/01/20 10:48 Dose: 1 mg Documented by: ABILIO Lorazepam (Lorazepam 0.5 Mg Tablet) 1 mg PO NOW ONE Stop: 10/01/20 12:41 Last Admin: 10/01/20 12:47 Dose: 1 mg Documented by: ABILIO Lorazepam (Lorazepam 0.5 Mg Tablet) 1 mg PO NOW ONE Stop: 10/01/20 18:35 Last Admin: 10/01/20 18:36 Dose: 1 mg Documented by: WINNIE Lorazepam (Lorazepam 0.5 Mg Tablet) 1 mg PO NOW ONE Stop: 10/02/20 06:37 Last Admin: 10/02/20 06:39 Dose: 1 mg Documented by: PREMA Lorazepam (Lorazepam 0.5 Mg Tablet) 1 mg PO NOW ONE Stop: 10/02/20 11:43 Last Admin: 10/02/20 11:53 Dose: 1 mg Documented by: ABILIO Lorazepam (Lorazepam 0.5 Mg Tablet) 2 mg PO NOW ONE Stop: 10/02/20 13:53 Last Admin: 10/02/20 13:59 Dose: 2 mg Documented by: ABILIO Olanzapine (Olanzapine Odt 10 Mg Tab) 5 mg PO NOW ONE Stop: 10/02/20 14:22 Last Admin: 10/02/20 14:25 Dose: 5 mg Documented by: ALEX Quetiapine Fumarate (Quetiapine 100 Mg Tablet) 600 mg PO NOW ONE Stop: 10/01/20 18:11 Last Admin: 10/01/20 18:15 Dose: 600 mg Documented by: WINNIE Vital Signs Vital signs: Vital Signs - 8 hr 10/02/20 11:00 Pulse Rate 77 Respiratory Rate 18 Blood Pressure [Right Arm] 117/78 Pulse Oximetry 97 <Tiffanie Collazo, - Last Filed: 10/01/20 18:14> Orders Ordered: Discontinued Medications Escitalopram Oxalate (Escitalopram 10 Mg Tablet) 10 mg PO NOW ONE Stop: 10/01/20 10:41 Last Admin: 10/01/20 10:48 Dose: 10 mg Documented by: ABILIO Escitalopram Oxalate (Escitalopram 10 Mg Tablet) 10 mg PO NOW ONE Stop: 10/02/20 06:36 Last Admin: 10/02/20 06:39 Dose: 10 mg Documented by: PREMA Lorazepam (Lorazepam 0.5 Mg Tablet) 1 mg PO NOW ONE Stop: 09/30/20 21:36 Last Admin: 09/30/20 21:40 Dose: 1 mg Documented by: FAUSTINO Lorazepam (Lorazepam 0.5 Mg Tablet) 1 mg PO NOW ONE Stop: 10/01/20 10:41 Last Admin: 10/01/20 10:48 Dose: 1 mg Documented by: ABILIO Lorazepam (Lorazepam 0.5 Mg Tablet) 1 mg PO NOW ONE Stop: 10/01/20 12:41 Last Admin: 10/01/20 12:47 Dose: 1 mg Documented by: ABILIO Lorazepam (Lorazepam 0.5 Mg Tablet) 1 mg PO NOW ONE Stop: 10/01/20 18:35 Last Admin: 10/01/20 18:36 Dose: 1 mg Documented by: WINNIE Lorazepam (Lorazepam 0.5 Mg Tablet) 1 mg PO NOW ONE Stop: 10/02/20 06:37 Last Admin: 10/02/20 06:39 Dose: 1 mg Documented by: PREMA Lorazepam (Lorazepam 0.5 Mg Tablet) 1 mg PO NOW ONE Stop: 10/02/20 11:43 Last Admin: 10/02/20 11:53 Dose: 1 mg Documented by: ABILIO Lorazepam (Lorazepam 0.5 Mg Tablet) 2 mg PO NOW ONE Stop: 10/02/20 13:53 Last Admin: 10/02/20 13:59 Dose: 2 mg Documented by: ABILIO Olanzapine (Olanzapine Odt 10 Mg Tab) 5 mg PO NOW ONE Stop: 10/02/20 14:22 Last Admin: 10/02/20 14:25 Dose: 5 mg Documented by: ALEX Quetiapine Fumarate (Quetiapine 100 Mg Tablet) 600 mg PO NOW ONE Stop: 10/01/20 18:11 Last Admin: 10/01/20 18:15 Dose: 600 mg Documented by: WINNIE Reevaluation(s) Reevaluation #1: Patient currently sleeping while awaiting social work for there evaluation. Patient signed out to myself by Dr. Saini. Patient is currently voluntary with suicidal thoughts and plan which was not shared with the overnight staff or Dr. Saini. Patient has been medically cleareed. Time: 07:15 Reevaluation #2: Patient awake, endorses continued suicidal ideation with plan to overdose amongst other options. Patient states that feels it was a mistake last time refusing to go to [facility] as he does really need help and he should have taken what ever was available to him at this time. We discussed his current symptoms. His current treatment. He does take Lexapro in the morning and he was given his normal dose. He does feel quite anxious so was given a dose of Ativan orally. He typically takes Seroquel in the evening. Time: 10:41 Vital Signs Vital signs: Vital Signs - 8 hr 10/02/20 11:00 Pulse Rate 77 Respiratory Rate 18 Blood Pressure [Right Arm] 117/78 Pulse Oximetry 97 <Linnette Wynn MD - Last Filed: 10/02/20 14:45> Orders Ordered: Discontinued Medications Escitalopram Oxalate (Escitalopram 10 Mg Tablet) 10 mg PO NOW ONE Stop: 10/01/20 10:41 Last Admin: 10/01/20 10:48 Dose: 10 mg Documented by: ABILIO Escitalopram Oxalate (Escitalopram 10 Mg Tablet) 10 mg PO NOW ONE Stop: 10/02/20 06:36 Last Admin: 10/02/20 06:39 Dose: 10 mg Documented by: PREMA Lorazepam (Lorazepam 0.5 Mg Tablet) 1 mg PO NOW ONE Stop: 09/30/20 21:36 Last Admin: 09/30/20 21:40 Dose: 1 mg Documented by: FAUSTINO Lorazepam (Lorazepam 0.5 Mg Tablet) 1 mg PO NOW ONE Stop: 10/01/20 10:41 Last Admin: 10/01/20 10:48 Dose: 1 mg Documented by: ABILIO Lorazepam (Lorazepam 0.5 Mg Tablet) 1 mg PO NOW ONE Stop: 10/01/20 12:41 Last Admin: 10/01/20 12:47 Dose: 1 mg Documented by: ABILIO Lorazepam (Lorazepam 0.5 Mg Tablet) 1 mg PO NOW ONE Stop: 10/01/20 18:35 Last Admin: 10/01/20 18:36 Dose: 1 mg Documented by: WINNIE Lorazepam (Lorazepam 0.5 Mg Tablet) 1 mg PO NOW ONE Stop: 10/02/20 06:37 Last Admin: 10/02/20 06:39 Dose: 1 mg Documented by: PREMA Lorazepam (Lorazepam 0.5 Mg Tablet) 1 mg PO NOW ONE Stop: 10/02/20 11:43 Last Admin: 10/02/20 11:53 Dose: 1 mg Documented by: ABILIO Lorazepam (Lorazepam 0.5 Mg Tablet) 2 mg PO NOW ONE Stop: 10/02/20 13:53 Last Admin: 10/02/20 13:59 Dose: 2 mg Documented by: ABILIO Olanzapine (Olanzapine Odt 10 Mg Tab) 5 mg PO NOW ONE Stop: 10/02/20 14:22 Last Admin: 10/02/20 14:25 Dose: 5 mg Documented by: ALEX Quetiapine Fumarate (Quetiapine 100 Mg Tablet) 600 mg PO NOW ONE Stop: 10/01/20 18:11 Last Admin: 10/01/20 18:15 Dose: 600 mg Documented by: WINNIE Vital Signs Vital signs: Vital Signs - 8 hr 10/02/20 11:00 Pulse Rate 77 Respiratory Rate 18 Blood Pressure [Right Arm] 117/78 Pulse Oximetry 97 MDM - Psych <Fish Saini DO - Last Filed: 10/03/20 02:40> Lab Data Result diagrams: 09/30/20 20:25 09/30/20 20:25 Labs: Lab Results 09/30/20 09/30/20 09/30/20 Range/Units 20:25 20:25 20:25 WBC 6.0 (4.5-11.0) X10^3/uL RBC 4.45 L (4.5-5.9) X10^6/uL Hgb 13.4 L (13.5-17.5) g/dL Hct 39.9 L (41-53) % MCV 89.6 (80-100) fL MCH 30.2 (26-34) PG MCHC 33.7 (30-36) % RDW 13.8 (11.6-14.8) % Plt Count 202 (150-400) X10^3/uL Neut % (Auto) 51.8 (50-75) % Lymph % (Auto) 33.8 (25-40) % [place] % (Auto) 11.7 (3-14) % Eos % (Auto) 1.5 L (2-4) % Baso % (Auto) 1.2 (0-2) % Neut # (Auto) 3100 (0077-2682) /uL Lymph # (Auto) 2000 (6658-7427) /uL [place] # (Auto) 700 (0-900) /uL Eos # (Auto) 100 (0-450) /uL Baso # (Auto) 100 (0-100) /uL D-Dimer (<230) ng/mL Sodium 135 L (137-145) mmol/L Potassium 3.7 (3.4-5.1) mmol/L Chloride 101 (98-107) mmol/L Carbon Dioxide 28 (22-32) mmol/L BUN 4 L (9-20) mg/dL Creatinine 0.66 (0.66-1.25) mg/dL Estimated GFR > 60.0 (>60) mL/min BUN/Creatinine Ratio 6.1 (6-22) Glucose 102 H (70-100) mg/dL Calcium 9.6 (8.4-10.2) mg/dL Total Bilirubin 0.3 (0.2-1.3) mg/dL AST 22 (17-59) IU/L ALT 19 (<50) IU/L Alkaline Phosphatase 57 (38-126) U/L Total Protein 6.7 (6.3-8.2) g/dL Albumin 4.3 (3.5-5.0) g/dL Globulin 2.4 (1.7-4.1) g/dL Albumin/Globulin Ratio 1.8 (1.0-2.8) TSH 1.23 (0.47-4.68) uIU/mL U Opiates 300ng/mL cut (Negative) Ur Oxycodone Screen (Negative) Urine Methadone Screen (Negative) Ur Barbiturates Screen (Negative) U Tricyclic Antidepress (Negative) Ur Phencyclidine Scrn (Negative) Ur Amphetamines Screen (Negative) U Methamphetamines Scrn (Negative) Ur MDMA Scrn (Ecstasy) (Negative) U Benzodiazepines Scrn (Negative) Urine Cocaine Screen (Negative) U Marijuana (THC) Screen (Negative) Ethyl Alcohol < 10 ( - 10) mg/dL SARS-CoV-2 (PCR) (Negative) 09/30/20 09/30/20 10/01/20 Range/Units 20:25 20:40 12:18 WBC (4.5-11.0) X10^3/uL RBC (4.5-5.9) X10^6/uL Hgb (13.5-17.5) g/dL Hct (41-53) % MCV (80-100) fL MCH (26-34) PG MCHC (30-36) % RDW (11.6-14.8) % Plt Count (150-400) X10^3/uL Neut % (Auto) (50-75) % Lymph % (Auto) (25-40) % [place] % (Auto) (3-14) % Eos % (Auto) (2-4) % Baso % (Auto) (0-2) % Neut # (Auto) (9866-3379) /uL Lymph # (Auto) (9304-8020) /uL [place] # (Auto) (0-900) /uL Eos # (Auto) (0-450) /uL Baso # (Auto) (0-100) /uL D-Dimer < 200 (<230) ng/mL Sodium (137-145) mmol/L Potassium (3.4-5.1) mmol/L Chloride (98-107) mmol/L Carbon Dioxide (22-32) mmol/L BUN (9-20) mg/dL Creatinine (0.66-1.25) mg/dL Estimated GFR (>60) mL/min BUN/Creatinine Ratio (6-22) Glucose (70-100) mg/dL Calcium (8.4-10.2) mg/dL Total Bilirubin (0.2-1.3) mg/dL AST (17-59) IU/L ALT (<50) IU/L Alkaline Phosphatase (38-126) U/L Total Protein (6.3-8.2) g/dL Albumin (3.5-5.0) g/dL Globulin (1.7-4.1) g/dL Albumin/Globulin Ratio (1.0-2.8) TSH (0.47-4.68) uIU/mL U Opiates 300ng/mL cut Negative (Negative) Ur Oxycodone Screen Negative (Negative) Urine Methadone Screen Negative (Negative) Ur Barbiturates Screen Negative (Negative) U Tricyclic Antidepress Negative (Negative) Ur Phencyclidine Scrn Negative (Negative) Ur Amphetamines Screen Negative (Negative) U Methamphetamines Scrn Negative (Negative) Ur MDMA Scrn (Ecstasy) Negative (Negative) U Benzodiazepines Scrn Negative (Negative) Urine Cocaine Screen Negative (Negative) U Marijuana (THC) Screen Positive H (Negative) Ethyl Alcohol ( - 10) mg/dL SARS-CoV-2 (PCR) Negative (Negative) Urine Dip Bedside Urine Glucose Negative Bedside Urine Bilirubin - Negative Bedside Urine Ketone - Negative Urine Specific Rozet 1.010 Bedside Urine Occult Blood - Negative Bedside Urine pH 8 Bedside Urine Protein - Negative Bedside Urine Urobilinogen - Negative Bedside Urine Nitrite - Negative Bedside Urine Leukocytes - Negative Esterase <Tiffanie Collazo, DO - Last Filed: 10/01/20 18:14> Lab Data Attestation: I reviewed the patient's lab results. Labs: Lab Results 09/30/20 09/30/20 09/30/20 Range/Units 20:25 20:25 20:25 WBC 6.0 (4.5-11.0) X10^3/uL RBC 4.45 L (4.5-5.9) X10^6/uL Hgb 13.4 L (13.5-17.5) g/dL Hct 39.9 L (41-53) % MCV 89.6 (80-100) fL MCH 30.2 (26-34) PG MCHC 33.7 (30-36) % RDW 13.8 (11.6-14.8) % Plt Count 202 (150-400) X10^3/uL Neut % (Auto) 51.8 (50-75) % Lymph % (Auto) 33.8 (25-40) % [place] % (Auto) 11.7 (3-14) % Eos % (Auto) 1.5 L (2-4) % Baso % (Auto) 1.2 (0-2) % Neut # (Auto) 3100 (2385-0993) /uL Lymph # (Auto) 2000 (0819-1901) /uL [place] # (Auto) 700 (0-900) /uL Eos # (Auto) 100 (0-450) /uL Baso # (Auto) 100 (0-100) /uL D-Dimer (<230) ng/mL Sodium 135 L (137-145) mmol/L Potassium 3.7 (3.4-5.1) mmol/L Chloride 101 (98-107) mmol/L Carbon Dioxide 28 (22-32) mmol/L BUN 4 L (9-20) mg/dL Creatinine 0.66 (0.66-1.25) mg/dL Estimated GFR > 60.0 (>60) mL/min BUN/Creatinine Ratio 6.1 (6-22) Glucose 102 H (70-100) mg/dL Calcium 9.6 (8.4-10.2) mg/dL Total Bilirubin 0.3 (0.2-1.3) mg/dL AST 22 (17-59) IU/L ALT 19 (<50) IU/L Alkaline Phosphatase 57 (38-126) U/L Total Protein 6.7 (6.3-8.2) g/dL Albumin 4.3 (3.5-5.0) g/dL Globulin 2.4 (1.7-4.1) g/dL Albumin/Globulin Ratio 1.8 (1.0-2.8) TSH 1.23 (0.47-4.68) uIU/mL U Opiates 300ng/mL cut (Negative) Ur Oxycodone Screen (Negative) Urine Methadone Screen (Negative) Ur Barbiturates Screen (Negative) U Tricyclic Antidepress (Negative) Ur Phencyclidine Scrn (Negative) Ur Amphetamines Screen (Negative) U Methamphetamines Scrn (Negative) Ur MDMA Scrn (Ecstasy) (Negative) U Benzodiazepines Scrn (Negative) Urine Cocaine Screen (Negative) U Marijuana (THC) Screen (Negative) Ethyl Alcohol < 10 ( - 10) mg/dL SARS-CoV-2 (PCR) (Negative) 09/30/20 09/30/20 10/01/20 Range/Units 20:25 20:40 12:18 WBC (4.5-11.0) X10^3/uL RBC (4.5-5.9) X10^6/uL Hgb (13.5-17.5) g/dL Hct (41-53) % MCV (80-100) fL MCH (26-34) PG MCHC (30-36) % RDW (11.6-14.8) % Plt Count (150-400) X10^3/uL Neut % (Auto) (50-75) % Lymph % (Auto) (25-40) % [place] % (Auto) (3-14) % Eos % (Auto) (2-4) % Baso % (Auto) (0-2) % Neut # (Auto) (1371-8540) /uL Lymph # (Auto) (9302-1295) /uL [place] # (Auto) (0-900) /uL Eos # (Auto) (0-450) /uL Baso # (Auto) (0-100) /uL D-Dimer < 200 (<230) ng/mL Sodium (137-145) mmol/L Potassium (3.4-5.1) mmol/L Chloride (98-107) mmol/L Carbon Dioxide (22-32) mmol/L BUN (9-20) mg/dL Creatinine (0.66-1.25) mg/dL Estimated GFR (>60) mL/min BUN/Creatinine Ratio (6-22) Glucose (70-100) mg/dL Calcium (8.4-10.2) mg/dL Total Bilirubin (0.2-1.3) mg/dL AST (17-59) IU/L ALT (<50) IU/L Alkaline Phosphatase (38-126) U/L Total Protein (6.3-8.2) g/dL Albumin (3.5-5.0) g/dL Globulin (1.7-4.1) g/dL Albumin/Globulin Ratio (1.0-2.8) TSH (0.47-4.68) uIU/mL U Opiates 300ng/mL cut Negative (Negative) Ur Oxycodone Screen Negative (Negative) Urine Methadone Screen Negative (Negative) Ur Barbiturates Screen Negative (Negative) U Tricyclic Antidepress Negative (Negative) Ur Phencyclidine Scrn Negative (Negative) Ur Amphetamines Screen Negative (Negative) U Methamphetamines Scrn Negative (Negative) Ur MDMA Scrn (Ecstasy) Negative (Negative) U Benzodiazepines Scrn Negative (Negative) Urine Cocaine Screen Negative (Negative) U Marijuana (THC) Screen Positive H (Negative) Ethyl Alcohol ( - 10) mg/dL SARS-CoV-2 (PCR) Negative (Negative) Urine Dip Bedside Urine Glucose Negative Bedside Urine Bilirubin - Negative Bedside Urine Ketone - Negative Urine Specific Rozet 1.010 Bedside Urine Occult Blood - Negative Bedside Urine pH 8 Bedside Urine Protein - Negative Bedside Urine Urobilinogen - Negative Bedside Urine Nitrite - Negative Bedside Urine Leukocytes - Negative Esterase <Linnette Wynn MD - Last Filed: 10/02/20 14:45> Medical Records Attestation: I reviewed the patient's medical records. Lab Data Attestation: I reviewed the patient's lab results. Labs: Lab Results 09/30/20 09/30/20 09/30/20 Range/Units 20:25 20:25 20:25 WBC 6.0 (4.5-11.0) X10^3/uL RBC 4.45 L (4.5-5.9) X10^6/uL Hgb 13.4 L (13.5-17.5) g/dL Hct 39.9 L (41-53) % MCV 89.6 (80-100) fL MCH 30.2 (26-34) PG MCHC 33.7 (30-36) % RDW 13.8 (11.6-14.8) % Plt Count 202 (150-400) X10^3/uL Neut % (Auto) 51.8 (50-75) % Lymph % (Auto) 33.8 (25-40) % [place] % (Auto) 11.7 (3-14) % Eos % (Auto) 1.5 L (2-4) % Baso % (Auto) 1.2 (0-2) % Neut # (Auto) 3100 (5550-4575) /uL Lymph # (Auto) 2000 (1254-0250) /uL [place] # (Auto) 700 (0-900) /uL Eos # (Auto) 100 (0-450) /uL Baso # (Auto) 100 (0-100) /uL D-Dimer (<230) ng/mL Sodium 135 L (137-145) mmol/L Potassium 3.7 (3.4-5.1) mmol/L Chloride 101 (98-107) mmol/L Carbon Dioxide 28 (22-32) mmol/L BUN 4 L (9-20) mg/dL Creatinine 0.66 (0.66-1.25) mg/dL Estimated GFR > 60.0 (>60) mL/min BUN/Creatinine Ratio 6.1 (6-22) Glucose 102 H (70-100) mg/dL Calcium 9.6 (8.4-10.2) mg/dL Total Bilirubin 0.3 (0.2-1.3) mg/dL AST 22 (17-59) IU/L ALT 19 (<50) IU/L Alkaline Phosphatase 57 (38-126) U/L Total Protein 6.7 (6.3-8.2) g/dL Albumin 4.3 (3.5-5.0) g/dL Globulin 2.4 (1.7-4.1) g/dL Albumin/Globulin Ratio 1.8 (1.0-2.8) TSH 1.23 (0.47-4.68) uIU/mL U Opiates 300ng/mL cut (Negative) Ur Oxycodone Screen (Negative) Urine Methadone Screen (Negative) Ur Barbiturates Screen (Negative) U Tricyclic Antidepress (Negative) Ur Phencyclidine Scrn (Negative) Ur Amphetamines Screen (Negative) U Methamphetamines Scrn (Negative) Ur MDMA Scrn (Ecstasy) (Negative) U Benzodiazepines Scrn (Negative) Urine Cocaine Screen (Negative) U Marijuana (THC) Screen (Negative) Ethyl Alcohol < 10 ( - 10) mg/dL SARS-CoV-2 (PCR) (Negative) 04/17/21 04/17/21 04/18/21 Range/Units 20:25 20:40 12:18 WBC (4.5-11.0) X10^3/uL RBC (4.5-5.9) X10^6/uL Hgb (13.5-17.5) g/dL Hct (41-53) % MCV (80-100) fL MCH (26-34) PG MCHC (30-36) % RDW (11.6-14.8) % Plt Count (150-400) X10^3/uL Neut % (Auto) (50-75) % Lymph % (Auto) (25-40) % [place] % (Auto) (3-14) % Eos % (Auto) (2-4) % Baso % (Auto) (0-2) % Neut # (Auto) (0732-7847) /uL Lymph # (Auto) (4637-2534) /uL [place] # (Auto) (0-900) /uL Eos # (Auto) (0-450) /uL Baso # (Auto) (0-100) /uL D-Dimer < 200 (<230) ng/mL Sodium (137-145) mmol/L Potassium (3.4-5.1) mmol/L Chloride (98-107) mmol/L Carbon Dioxide (22-32) mmol/L BUN (9-20) mg/dL Creatinine (0.66-1.25) mg/dL Estimated GFR (>60) mL/min BUN/Creatinine Ratio (6-22) Glucose (70-100) mg/dL Calcium (8.4-10.2) mg/dL Total Bilirubin (0.2-1.3) mg/dL AST (17-59) IU/L ALT (<50) IU/L Alkaline Phosphatase (38-126) U/L Total Protein (6.3-8.2) g/dL Albumin (3.5-5.0) g/dL Globulin (1.7-4.1) g/dL Albumin/Globulin Ratio (1.0-2.8) TSH (0.47-4.68) uIU/mL U Opiates 300ng/mL cut Negative (Negative) Ur Oxycodone Screen Negative (Negative) Urine Methadone Screen Negative (Negative) Ur Barbiturates Screen Negative (Negative) U Tricyclic Antidepress Negative (Negative) Ur Phencyclidine Scrn Negative (Negative) Ur Amphetamines Screen Negative (Negative) U Methamphetamines Scrn Negative (Negative) Ur MDMA Scrn (Ecstasy) Negative (Negative) U Benzodiazepines Scrn Negative (Negative) Urine Cocaine Screen Negative (Negative) U Marijuana (THC) Screen Positive H (Negative) Ethyl Alcohol ( - 10) mg/dL SARS-CoV-2 (PCR) Negative (Negative) Urine Dip Bedside Urine Glucose Negative Bedside Urine Bilirubin - Negative Bedside Urine Ketone - Negative Urine Specific [place] 1.010 Bedside Urine Occult Blood - Negative Bedside Urine pH 8 Bedside Urine Protein - Negative Bedside Urine Urobilinogen - Negative Bedside Urine Nitrite - Negative Bedside Urine Leukocytes - Negative Esterase MDM Narrative Medical decision making narrative: 29-year-old gentleman who is having suicidal ideation and agrees that inpatient care would be very appropriate and helpful. He has been somewhat anxious over the course of the day and has been given additional doses of Ativan. He was transferred to [facility] [facility] for [facility] voluntary inpatient care for his depression and suicidal ideation. All paperwork is filled out and he is stable and safe at time of transfer. Discharge Plan Departure Patient Disposition: [facility] Clinical Impression: Suicidal ideation <Tiffanie Collazo, DO - Last Filed: 10/01/20 18:14> Sign Out Provider Sign Out Attestation: Patient Sign Out occurred on 10/01/2020 at 18 10. Patient's care was discussed, and care was transferred from Dr. Collazo to Dr. Saini
[2020-09-30 19:50] VITALS: BP 145/76; PULSE 96; RESP 18; TEMP 36.8; O2SAT 98; BMI 21.5
[2020-09-30 20:35] LABS: Add Manual Diff / Slide Review NO; Basophils Absolute Auto 100 /uL (0-100); Basophils Percent Auto 1.2 % (0-2); Eosinophils Absolute Auto 100 /uL (0-450); Eosinophils Percent Auto 1.5 % (2-4); Hematocrit 39.9 % (41-53); Hemoglobin 13.4 g/dL (13.5-17.5); Lymphocytes Absolute Auto 2000 /uL (1100-4500); Lymphocytes Percent Auto 33.8 % (25-40); Mean Corpuscular HGB Conc 33.7 % (30-36); Mean Corpuscular Hemoglobin 30.2 PG (26-34); Mean Corpuscular Volume 89.6 fL (80-100); Monocytes Absolute Auto 700 /uL (0-900); Monocytes Percent Auto 11.7 % (3-14); Neutrophils Absolute Auto 3100 /uL (1500-7000); Neutrophils Percent Auto 51.8 % (50-75); Platelet Count 202 X10^3/uL (150-400); Red Blood Cell Count 4.45 X10^6/uL (4.5-5.9); Red Cell Distribution Width 13.8 % (11.6-14.8)
[2020-09-30 20:48] LABS: Alanine Aminotransferase 19 IU/L (<50); Albumin 4.3 g/dL (3.5-5.0); Albumin Globulin Ratio 1.8 (1.0-2.8); Alkaline Phosphatase 57 U/L (38-126); Aspartate Aminotransferase 22 IU/L (17-59); BUN Creatinine Ratio 6.1 (6-22); Bilirubin Total 0.3 mg/dL (0.2-1.3); Blood Urea Nitrogen 4 mg/dL (9-20); Calcium 9.6 mg/dL (8.4-10.2); Carbon Dioxide 28 mmol/L (22-32); Chloride 101 mmol/L (98-107); Estimated Glomerular Filt Rate > 60.0 mL/min (>60); Ethanol (ETOH) < 10 mg/dL; Globulin 2.4 g/dL (1.7-4.1); Glucose 102 mg/dL (70-100); HEMOLYSIS < 15 (0-50); Potassium 3.7 mmol/L (3.4-5.1); Sodium 135 mmol/L (137-145); Total Protein 6.7 g/dL (6.3-8.2)
[2020-09-30 20:57] LABS: UR Morphine/Opiate cutoff 300 Negative (Negative); Ur Creatinine Normal (Normal); Ur Specific Gravity Normal (Normal); Urine Amphetamines Negative (Negative); Urine Barbiturates Negative (Negative); Urine Benzodiazepines Negative (Negative); Urine Cocaine Negative (Negative); Urine MDMA Negative (Negative); Urine Methadone Negative (Negative); Urine Methamphetamines Negative (Negative); Urine Oxycodone Negative (Negative); Urine Phencyclidine Negative (Negative); Urine Tetrahydrocannabinol Positive (Negative); Urine Tricyclic Antidepressant Negative (Negative); Urine pH Normal (Normal)
[2020-09-30 21:23] LABS: Thyroid Stimulating Hormone 1.23 uIU/mL (0.47-4.68)
[2020-09-30 21:36] LABS: D Dimer < 200 ng/mL (<230)
[2020-09-30] MEDS: LORazepam 0.5 MG TABLET 1 MG PO (21:40)
[2020-10-01 07:06] VITALS: BP 108/62; PULSE 58; RESP 16; TEMP 37.2
--- NOTE | 2020-10-01 08:14 | PC.NURSE ---
pt ate all his breakfast and requested warm blankets. pt then went back to laying done on right side.
[2020-10-01] MEDS: ESCITALOPRAM 10 MG TABLET PO (10:48)
[2020-10-01] MEDS: LORazepam 0.5 MG TABLET 1 MG PO ×3 (10:48→18:36)
[2020-10-01 12:39] LABS: COVID19 -Nasal RAPID Negative (Negative)
--- NOTE | 2020-10-01 13:05 | PC.NURSE ---
patient lying on stretcher and hitting his head on the wall. I moved the stretcher out of the room and placed the mattress on the floor in the middle of the room. patient cooperative and moved to the mattress on the floor. patient states that when I realized I was in here, I wish I would have just killed myself in middle school and so I would not have to deal with all this. provider aware.
--- NOTE | 2020-10-01 13:20 | PC.NURSE ---
at 1235 pt states I don't feel safe i asked pt if he wanted me to clear the room of items, he said that won't stop me from bashing my head in the wall pt then asked for more ativan, I will reported to dr. logan. orders rec'd and noted.
[2020-10-01 17:59] VITALS: BP 131/70; PULSE 82; RESP 18; TEMP 36.5; O2SAT 98
--- NOTE | 2020-10-01 18:09 | PC.NURSE ---
verbal order for pt's home dose of 600mg of seroquel from Dr. Saini
[2020-10-01] MEDS: QUETIAPINE 100 MG TABLET 600 MG PO (18:15)
--- NOTE | 2020-10-01 18:18 | PC.NURSE ---
pt was moved to Room 8, pt seems agitated by the move. pt is hitting his pillow with a closed fist. i asked pt what was going on he replied if you aren't going to help me, I'm going to hurt myself pt then hit himself on top of his head 3-4 times. no sanchez or bleeding noted to the pts head. he then said you don't listen, seroquel won't help and you just give me it I said i can have the dr come speak with him, he seemed agreeable. will report to dr bryant.
--- NOTE | 2020-10-01 23:00 | PC.NURSE ---
Patient has been sleeping since 8pm
--- NOTE | 2020-10-01 23:55 | PC.NURSE ---
PACKAGING MANAGER note: Patient got up and asked for cranberry juice. Patient is standing next to bed, drinking the cranberry juice.
[2020-10-02] MEDS: ESCITALOPRAM 10 MG TABLET PO (06:39)
[2020-10-02] MEDS: LORazepam 0.5 MG TABLET 1 MG PO ×2 (06:39→11:53)
[2020-10-02 06:40] VITALS: BP 115/59; PULSE 59; RESP 14; TEMP 36.6; O2SAT 99
[2020-10-02 11:00] VITALS: BP 117/78; PULSE 77; RESP 18; O2SAT 97
--- NOTE | 2020-10-02 11:58 | PC.NURSE ---
Took patient's vitals and he spoke about hurting himself. He stated that he needed anxiety medication because he does not feel well and without it he wants to hurt himself. Was scoping the room for something to smash. Reported this information to the nurse after.
--- NOTE | 2020-10-02 12:38 | PC.NURSE ---
report to Vane Lizarraga.
--- NOTE | 2020-10-02 13:33 | PC.NURSE ---
bedside table removed from room as patient was continuing to use it to hit himself in the head.
--- NOTE | 2020-10-02 13:35 | PC.NURSE ---
pt states i need more medicine or i'm going to start hurting myself i explained the dr is occupied right now but i would relay the message.
[2020-10-02] MEDS: LORazepam 0.5 MG TABLET 2 MG PO (13:59)
[2020-10-02] MEDS: OLANZapine ODT 10 MG TAB 5 MG PO (14:25)
--- NOTE | 2020-10-02 14:26 | PC.NURSE ---
Continued increase in anxiety. Provider aware and ordered medication, pt took willingly. RECEIVING AND PROCESSING SUPERVISOR in to re-evaluate. Pt is currently voluntary.
--- NOTE | 2020-10-02 14:48 | PC.NURSE ---
Patient Restraint Monitoring note meant to be entered on Patient Safety Monitoring documented by this public relations writer who provided 1:1 continuous monitoring of patient during this shift.
--- NOTE | 2020-10-02 14:53 | CM.SWNOTE ---
INDUSTRIAL SEAMSTRESS Note INDUSTRIAL SEAMSTRESS receives consult for patient. When INDUSTRIAL SEAMSTRESS arrives patient is waiting for ambulance for transport to voluntary inpatient bed at [facility] at 1430. Per RNs Maria D Brito and Sandra patient is questioning whether or not he wants to go to [facility] voluntarily. INDUSTRIAL SEAMSTRESS enters patient's room, present is RNs Sandra and Maria D. Patient presents as irritable and escalated. Patient is speaking rapidly, standing next to bedside holding pillow. Patient's affect is dysphoric and congruent with mood. Patient states that he came to this ED because he was giving himself one more chance for seeking help and he states that he would even go to [facility]. During conversation, patient states he has been to [facility] three previous times and reports that he did not want to return there due to his experience. Patient expresses his frustration with the MH system. Patient states he would do drugs and kill himself. Patient states his last resort plan is to buy a one way ticket to [place] and spend his time on the beach there in his last days. INDUSTRIAL SEAMSTRESS discusses that patient is currently voluntarily going to [facility] and if patient changes his mind a DCR will be contacted. Patient indicates understanding. Patient states that when he was here last week a DCR met with him and he went home afterwards. Patient states he is connected with a therapist and a psychiatrist and he will meet with them as soon as he can. ARIEL Flores provides patient with Ativan. Patient proceeds to look for his phone to call his mother about his decision, patient requests privacy during phone call. Afterwards, INDUSTRIAL SEAMSTRESS is informed that patient could not get in touch with his mother. INDUSTRIAL SEAMSTRESS, ARIEL Flores and ARIEL Killian enter patient room when ambulance transport has arrived. Patient consents to voluntary inpatient treatment at [facility] after conversation discussing the benefits of going. Plan: Patient d/c via ambulance transport to [facility] for inpatient bed. ABDIRASHID Ruiz
== END 2020-10-02 14:57 ==
PROVIDERS: Emergency Medicine; Emergency Provider Emergency Medicine
DX: R45.851 Suicidal ideations (principal); F32.9 Major depressive disorder, single episode, unspecified; Z20.822 Contact with and (suspected) exposure to COVID-19
CPT/HCPCS: 36415; 80053; 80305; 80320; 81003; 84443; 85025; 85379; 87635; 99284; C9803